=== PATIENT | male | born 1970 | race Caucasian/White ===

== ENCOUNTER 2019-01-16 20:49 | Emergency (ER) | payer BC ==
[2019-01-16 21:30] LABS: Absolute Lymphocytes (CBC) 2.7 K/uL (0.7-4.9); Absolute Monocytes 0.7 K/uL (0.1-1.3); Basophils % 0.8 % (0-1.3); Hematocrit 45.8 % (39.6-49.0); Lymphocytes % 25.3 % (15.3-44.8); MPV 9.9 fL (7.6-11.3); Monocytes % 6.3 % (3.3-12.3); RBC Red Blood Cell Count 4.82 M/uL (4.33-5.43)
[2019-01-16 21:40] LABS: Protime INR 0.96
[2019-01-16] MEDS ORDERED: CLOPIDOGREL 75 MG TABLET ONE (21:40)
[2019-01-16] MEDS ORDERED: ASPIRIN 81 MG CHEWABLE TABLET ONE (21:40)
[2019-01-16 21:53] LABS: ALT/SGPT 23 U/L (12-78); AST/SGOT 19 U/L (15-37); Albumin 4.2 g/dL (3.4-5.0); Alkaline Phosphatase 59 U/L (45-117); BUN Blood Urea Nitrogen 8 mg/dL (7-18); Bicarbonate 21 mmol/L (21-32); Bilirubin Direct 0.1 mg/dL (0-0.2); Bilirubin Total 0.4 mg/dL (0.2-1.0); Glucose Level 94 mg/dL (74-106); Potassium 3.9 mmol/L (3.5-5.1); Protein, Total 7.6 g/dL (6.4-8.2); Sodium Level 139 mmol/L (136-145); Troponin (Emerg Dept Use Only) < 0.02 ng/mL (0.0-0.045)
[2019-01-16 21:56] LABS: NT PRO-BNP < 5 pg/mL (<125)
--- NOTE | 2019-01-16 23:46 | ER ---
Nurse's Notes [facility] Name: Sunday Matthews Age: 48 yrs Sex: Male : 1970 Arrival Date: 01/16/2019 Time: 20:52 Bed 6 Private MD: Diagnosis: Chest pain, unspecified Presentation: 01/16 21:01 Presenting complaint: Patient states: he is having chest pain for the last several bb hours has history of a heart stent and was concerned pt states he does not take his medications regularly. Transition of care: patient was not received from another setting of care. Onset of symptoms was January 16, 2019. Risk Assessment: Do you want to hurt yourself or someone else? Patient reports no desire to harm self or others. Initial Sepsis Screen: Does the patient meet any 2 criteria? No. Patient's initial sepsis screen is negative. Does the patient have a suspected source of infection? No. Patient's initial sepsis screen is negative. Care prior to arrival: None. 21:01 Method Of Arrival: Ambulatory bb 21:01 Acuity: CHRISTINA 3 bb Historical: - Allergies: 21:03 No Known Allergies; bb - Home Meds: 21:03 aspirin 81 mg Oral TbEC [Active]; Insulin pump [Active]; Metoprolol Tartrate Oral bb [Active]; Plavix 75 mg Oral tab 1 tab once daily [Active]; - PMHx: 21:03 Diabetes - IDDM; Hyperlipidemia; Hypertension; bb - PSHx: 21:03 Heart stents; bb - Immunization history:: Adult Immunizations up to date. - Social history:: Smoking status: Patient uses tobacco products, smokes one pack cigarettes per day. Patient uses alcohol, on a daily basis. Patient/guardian denies using street drugs. - Ebola Screening: : No symptoms or risks identified at this time. Screenin:07 Abuse screen: Denies threats or abuse. Nutritional screening: No deficits noted. tl2 Tuberculosis screening: No symptoms or risk factors identified. Fall Risk None identified. Assessment: 21:08 General: Appears in no apparent distress. comfortable, Behavior is calm, cooperative, tl2 appropriate for age. Pain: Complains of pain in anterior aspect of left upper chest and mid-sternal area Pain does not radiate. Pain began 2 hours ago. Aggravated by increased activity, repositioning. Neuro: Level of Consciousness is awake, alert, obeys commands, Oriented to person, place, time, situation. Cardiovascular: Chest pain is described as vague, is located in chest wall. Respiratory: Airway is patent Respiratory effort is even, unlabored, Respiratory pattern is regular, symmetrical. Respiratory: Reports shortness of breath. GI: No signs and/or symptoms were reported involving the gastrointestinal system. : No signs and/or symptoms were reported regarding the genitourinary system. Derm: Skin is pink, warm \T\ dry. 21:41 Reassessment: Patient appears in no apparent distress at this time. No changes from la1 previously documented assessment. Patient and/or family updated on plan of care and expected duration. Pain level reassessed. 23:17 Reassessment: Patient appears in no apparent distress at this time. Patient and/or tl2 family updated on plan of care and expected duration. Pain level reassessed. Patient is alert, oriented x 3, equal unlabored respirations, skin warm/dry/pink. sent repeat trop. Pending dispo. 01/17 00:06 Reassessment: Patient appears in no apparent distress at this time. Patient and/or tl2 family updated on plan of care and expected duration. Pain level reassessed. Patient is alert, oriented x 3, equal unlabored respirations, skin warm/dry/pink. pt verbalized understanding of discharge instructions, need for follow up Patient states feeling better. Vital Signs: 01/16 21:03 BP 155 / 94; Pulse 90; Resp 16 S; Temp 98.4(O); Pulse Ox 97% on R/A; Weight 90.72 kg tl2 (R); Height 5 ft. 11 in. (180.34 cm) (R); Pain 5/10; 22:11 BP 134 / 89; Pulse 84; Resp 18; Pulse Ox 94% on R/A; tl2 23:17 BP 111 / 79; Pulse 81; Resp 18; Pulse Ox 94% on R/A; tl2 01/17 00:06 BP 111 / 88; Pulse 83; Resp 18; Pulse Ox 96% on R/A; tl2 01/16 21:03 Body Mass Index 27.89 (90.72 kg, 180.34 cm) tl2 Vitals: 01/16 21:08 Cardiac Rhythm Assessment Sinus rhythm. tl2 ED Course: 20:52 Patient arrived in ED. es 21:02 Triage completed. bb 21:03 Arm band placed on Patient placed in an exam room, on a stretcher, on quality assurance monitor chassis, bb on pulse oximetry. EKG completed in triage. Results shown to MD. 21:04 Brendan Cervantes PA is PHCP. jr8 21:04 Hector Ernandez MD is Attending Physician. jr8 21:07 Marcie Reeder, DEANNA is Primary Nurse. tl2 21:07 Patient has correct armband on for positive identification. Bed in low position. Call tl2 light in reach. Side rails up X2. Adult w/ patient. secured entrance monitor on. Pulse ox on. NIBP on. 21:07 Inserted saline lock: 20 gauge in right antecubital area, using aseptic technique. tl2 Blood collected. 21:07 Patient maintains SpO2 saturation greater than 95% on room air. tl2 21:44 XRAY Chest (1 view) In Process Unspecified. EDMS 01/17 00:06 No provider procedures requiring assistance completed. IV discontinued, intact, tl2 bleeding controlled, No redness/swelling at site. Pressure dressing applied. Administered Medications: 01/16 21:36 Drug: Aspirin Chewable Tablet 324 mg Route: PO; tl2 01/17 00:08 Follow up: Response: No adverse reaction tl2 01/16 21:36 Drug: PlaVIX 75 mg Route: PO; tl2 01/17 00:07 Follow up: Response: No adverse reaction tl2 Outcome: 01/16 23:46 Discharge ordered by . jrAlanna 01/17 00:06 Discharged to home ambulatory, with family. tl2 Condition: stable Discharge instructions given to patient, Instructed on discharge instructions, follow up and referral plans. Demonstrated understanding of instructions, follow-up care. 00:19 Patient left the ED. tl2 Signatures: Dispatcher [employer] [facility] Lennie Richard Brenda, RN RN bb Roszak, Josh, PA PA jr8 Boby Bell RN RN la1 Knox, Taylor, RN RN tl2 Corrections: (The following items were deleted from the chart) 01/16 21:07 21:03 BP 155 / 94; Pulse 90bpm; Resp 16bpm; Spontaneous; Pulse Ox 97% RA; 90.72 kg tl2 Reported; Height 5 ft. 11 in. Reported; BMI: 27.8; Pain 5/10; bb 21:41 21:41 BP 148 / 77; Pulse 78bpm; Resp 16bpm; Pulse Ox 98% RA; la1 la1
--- NOTE | 2019-01-16 23:46 | EDPHYS ---
Physician Documentation [facility] Name: Sunday Matthews Age: 48 yrs Sex: Male : 1970 Arrival Date: 01/16/2019 Time: 20:52 Bed 6 Private MD: ED Physician Hector Ernandez HPI: 01/16 21:22 This 48 yrs old Male presents to ER via Ambulatory with complaints of Chest jr8 Pain. 21:22 The patient or guardian reports chest pain that is located primarily in the substernal jr8 area. Onset: acutely, today. The pain does not radiate. Associated signs and symptoms: The patient has no apparent associated signs or symptoms. The chest pain is described as sharp. Duration: The patient or guardian reports a single episode, that is still ongoing, but improving. Modifying factors: The symptoms are alleviated by nothing. the symptoms are aggravated by movement. Severity of pain: At its worst the pain was moderate in the emergency department the pain has improved. The patient has experienced a previous episode, but today's symptoms are not as bad as this previous episode. The patient has not recently seen a physician. 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 Stated that he has had stent in past and is not very compliant with his medication. Feeling better now. Has private bobbin collector in [place]. Describes pain as sharp and worse when he was moving. Historical: - Allergies: 21:03 No Known Allergies; bb - Home Meds: 21:03 aspirin 81 mg Oral TbEC [Active]; Insulin pump [Active]; Metoprolol Tartrate Oral bb [Active]; Plavix 75 mg Oral tab 1 tab once daily [Active]; - PMHx: 21:03 Diabetes - IDDM; Hyperlipidemia; Hypertension; bb - PSHx: 21:03 Heart stents; bb - Immunization history:: Adult Immunizations up to date. - Social history:: Smoking status: Patient uses tobacco products, smokes one pack cigarettes per day. Patient uses alcohol, on a daily basis. Patient/guardian denies using street drugs. - Ebola Screening: : No symptoms or risks identified at this time. ROS: 21:22 Eyes: Negative for injury, pain, redness, and discharge, ENT: Negative for injury, jr8 pain, and discharge, Neck: Negative for injury, pain, and swelling, Respiratory: Negative for shortness of breath, cough, wheezing, and pleuritic chest pain, Abdomen/GI: Negative for abdominal pain, nausea, vomiting, diarrhea, and constipation, Back: Negative for injury and pain, MS/Extremity: Negative for injury and deformity, Skin: Negative for injury, rash, and discoloration, Neuro: Negative for headache, weakness, numbness, tingling, and seizure. 21:22 Cardiovascular: Positive for chest pain, Negative for edema, orthopnea, palpitations, paroxysmal nocturnal dyspnea. Exam: 21:22 Head/Face: Normocephalic, atraumatic. Eyes: Pupils equal round and reactive to light, jr8 extra-ocular motions intact. Lids and lashes normal. Conjunctiva and sclera are non-icteric and not injected. Cornea within normal limits. Periorbital areas with no swelling, redness, or edema. ENT: Nares patent. No nasal discharge, no septal abnormalities noted. Tympanic membranes are normal and external auditory canals are clear. Oropharynx with no redness, swelling, or masses, exudates, or evidence of obstruction, uvula midline. Mucous membranes moist. Neck: Trachea midline, no thyromegaly or masses palpated, and no cervical lymphadenopathy. Supple, full range of motion without nuchal rigidity, or vertebral point tenderness. No Meningismus. Chest/axilla: Normal chest wall appearance and motion. Nontender with no deformity. No lesions are appreciated. Cardiovascular: Regular rate and rhythm with a normal S1 and S2. No gallops, murmurs, or rubs. Normal PMI, no JVD. No pulse deficits. Respiratory: Lungs have equal breath sounds bilaterally, clear to auscultation and percussion. No rales, rhonchi or wheezes noted. No increased work of breathing, no retractions or nasal flaring. Abdomen/GI: Soft, non-tender, with normal bowel sounds. No distension or tympany. No guarding or rebound. No evidence of tenderness throughout. Back: No spinal tenderness. No costovertebral tenderness. Full range of motion. Skin: Warm, dry with normal turgor. Normal color with no rashes, no lesions, and no evidence of cellulitis. MS/ Extremity: Pulses equal, no cyanosis. Neurovascular intact. Full, normal range of motion. Neuro: Awake and alert, GCS 15, oriented to person, place, time, and situation. Cranial nerves II-XII grossly intact. Motor strength 5/5 in all extremities. Sensory grossly intact. Cerebellar exam normal. Normal gait. Vital Signs: 21:03 BP 155 / 94; Pulse 90; Resp 16 S; Temp 98.4(O); Pulse Ox 97% on R/A; Weight 90.72 kg tl2 (R); Height 5 ft. 11 in. (180.34 cm) (R); Pain 5/10; 22:11 BP 134 / 89; Pulse 84; Resp 18; Pulse Ox 94% on R/A; tl2 23:17 BP 111 / 79; Pulse 81; Resp 18; Pulse Ox 94% on R/A; tl2 01/17 00:06 BP 111 / 88; Pulse 83; Resp 18; Pulse Ox 96% on R/A; tl2 01/16 21:03 Body Mass Index 27.89 (90.72 kg, 180.34 cm) tl2 MDM: 01/16 21:14 Patient medically screened. jr8 23:45 The patient was given aspirin in the Emergency Department. Data reviewed: vital signs, jr8 nurses notes, lab test result(s), EKG, radiologic studies, plain films. Data interpreted: Pulse oximetry: on room air is 94 %. Interpretation: acceptable. Test interpretation: by ED physician or midlevel provider: plain radiologic studies, Negative for acute osseous, pulmonary, are cardiac findings on CXR. Counseling: I had a detailed discussion with the patient and/or guardian regarding: the historical points, exam findings, and any diagnostic results supporting the discharge/admit diagnosis, lab results, radiology results, the need for outpatient follow up, a bobbin collector, to return to the emergency department if symptoms worsen or persist or if there are any questions or concerns that arise at home. 23:46 ED course: Patient feeling better. 2 sets of cardiac enzymes completed. Both negative. jr8 No other acute findings on ECG, blood, or imaging. Following up with bobbin collector this week. Knows to come back if worse. 01/16 21:14 Order name: Basic Metabolic Panel; Complete Time: 22:00 jr8 01/16 21:14 Order name: CBC with Diff; Complete Time: 22:00 jr8 01/16 21:14 Order name: LFT's; Complete Time: 22:00 jr8 04/21 21:14 Order name: Magnesium; Complete Time: 22:00 01/16 21:14 Order name: NT PRO-BNP; Complete Time: 22:00 01/16 21:14 Order name: PT-INR; Complete Time: 22:15 01/16 21:14 Order name: Troponin (emerg Dept Use Only); Complete Time: 22:00 01/16 21:14 Order name: XRAY Chest (1 view) 01/16 21:14 Order name: EKG; Complete Time: 21:15 01/16 21:14 Order name: Cardiac monitoring; Complete Time: 21:17 01/16 21:14 Order name: EKG - Nurse/Tech; Complete Time: :01/16 22:51 Order name: Troponin (emerg Dept Use Only); Complete Time: 23:44 01/16 21:14 Order name: IV Saline Lock; Complete Time: 21:17 01/16 21:14 Order name: Labs collected and sent; Complete Time: 21:18 01/16 21:14 Order name: O2 Per Protocol; Complete Time: 21:18 01/16 21:14 Order name: O2 Sat Monitoring; Complete Time: :18 Administered Medications: 21:36 Drug: Aspirin Chewable Tablet 324 mg Route: PO; 2 01/17 00:08 Follow up: Response: No adverse reaction 2 01/16 21:36 Drug: PlaVIX 75 mg Route: PO; 2 01/17 00:07 Follow up: Response: No adverse reaction 2 Disposition: 01/16/19 23:46 Discharged to Home. Impression: Chest pain, unspecified. - Condition is Stable. - Discharge Instructions: Nonspecific Chest Pain. - Medication Reconciliation Form, Thank You Letter, Antibiotic Education, Prescription Opioid Use form. - Follow up: Private Physician; When: 2 - 3 days; Reason: Recheck today's complaints, Continuance of care, Re-evaluation by your physician. - Problem is new. - Symptoms have improved. Addendum: 01/18/2019 01:30 Co-signature as Attending Physician, Hector Ernandez MD. g s Signatures: Dispatcher [facility] Nichol Cuellar RN RN Brendan Putnam PA PA jr8 Marcie Reeder RN RN tl2 Hector Ernandez MD MD gs Corrections: (The following items were deleted from the chart) 01/17 00:19 01/16 23:46 01/16/2019 23:46 Discharged to Home. Impression: Chest pain, unspecified. tl2 Condition is Stable. Forms are Medication Reconciliation Form, Thank You Letter, Antibiotic Education, Prescription Opioid Use. Follow up: Private Physician; When: 2 - 3 days; Reason: Recheck today's complaints, Continuance of care, Re-evaluation by your physician. Problem is new. Symptoms have improved. jr8
--- NOTE | 2019-01-17 07:44 | EKG ---
Test Date: 2019-01-16 Test Time: 20:58:[address] Judge: ALES[place] MEASUREMENT RESULTS: Intervals: Rate: 86 OH: 148 QRSD: 84 QT: 366 QTc: 437 [place]: P: 53 OH: 148 QRS: 71 T: 37 INTERPRETIVE STATEMENTS: Normal sinus rhythm Normal ECG No previous ECG available for comparison Electronically Signed On 01-17-19 07:43:40 CDT by Mazin Guardado
--- NOTE | 2019-01-17 08:05 | RAD REPORT ---
EXAM DESCRIPTION: RAD - Chest Single View - 01/16/2019 9:44 pm CLINICAL HISTORY: Chest pain COMPARISON: None. TECHNIQUE: AP portable chest image was obtained 2139 hours . FINDINGS: Lungs are clear. Heart and vasculature are normal. No measurable pleural effusion and no p neumothorax. No acute bony abnormality seen. No acute aortic findings suspected. IMPRESSION: No acute cardiopulmonary process.
== END 2019-01-17 00:19 | disposition home or self-care (01) ==
LOC: ER 20:49
DX: R07.9 Chest pain, unspecified (principal); E11.9 Type 2 diabetes mellitus without complications; E78.5 Hyperlipidemia, unspecified; I10 Essential (primary) hypertension; Z79.82 Long term (current) use of aspirin
CPT/HCPCS: 36415; 71045; 80048; 80076; 83735; 83880; 84484; 85025; 85610; 93005; 99285